=== PATIENT | male | born 1970 | race Caucasian/White ===

== ENCOUNTER 2017-02-06 00:47 | Emergency (ER) | payer SELFPAY ==
[~2017-02-06] VITALS: Ht 160 cm; Wt 68.0 kg
[2017-02-06 00:55] VITALS: Ht 160 cm; Wt 68.0 kg
[2017-02-06] MEDS ORDERED: IBUPROFEN 600 MG TAB PO ONE (01:30)
--- NOTE | 2017-02-06 02:21 | ERD ---
ER Documentation Chief Complaint Date/Time DATE: 02/06/17 TIME: 02:19 Chief Complaint left foot injury HPI 46-YEAR-OLD MALE PRESENTS HERE IN EMERGENCY DEPARTMENT FOR COMPLAINTS OF LEFT FOOT PAIN AFTER HITTING IT IN THE DESK YESTERDAY. PATIENT DESCRIBED THE PAIN THROBBING PAIN WAS 6/10 SCALE, IS WORSE UPON TOUCHING THE AREA. PATIENT DID NOT TAKE ANY MEDICATIONS FOR SYMPTOMS. PATIENT DENIES ANY NUMBNESS OR TINGLING. PATIENT DENIES ANY DEFORMITY. ROS All systems reviewed and are negative except as per history of present illness. Medications Home Meds Reported Medications [none] Unknown Strength No Conflict Check 02/06/17 Allergies Allergies: Coded Allergies: No Known Allergy (Unverified , 02/06/17) PMhx/Soc Medical and Surgical Hx: pt denies Medical Hx, pt denies Surgical Hx Hx Alcohol Use: No Hx Substance Use: No Hx Tobacco Use: No Smoking Status: Never smoker FmHx Family History: No coronary disease, No diabetes, No other Physical Exam Vitals Vital Signs Date Time Temp Pulse Resp B/P Pulse Ox O2 Delivery O2 Flow Rate FiO2 02/06/17 00:55 97.8 98 20 134/85 97 Physical Exam GENERAL: The patient is well developed and appropriate for usual state of health, in no apparent distress. CHEST: Clear to auscultation bilaterally. There are no rales, wheezes or rhonchi. HEART: Regular rate and rhythm. No murmurs, clicks, rubs or gallops. No S3 or S4. ABDOMEN: Soft, nontender and nondistended. Good bowel sounds. No rebound or guarding. No gross peritonitis. No gross organomegaly or masses. No Morgan sign or McBurney point tenderness. BACK: No midline or flank tenderness. EXTREMITIES: Tenderness on palpation on the dorsal aspect of the left foot, more on the third fourth and fifth phalanx. Equal pulses bilaterally. Full range of motion of other joints of the body. Grossly neurovascularly intact. NEURO: Alert and oriented. Cranial nerves 2-12 intact. Motor strength in all 4 extremities with 5/5 strength. Sensation grossly intact. Normal speech and gait. SKIN: There is no apparent rash or petechia. The skin is warm and dry. HEMATOLOGIC AND LYMPHATIC: There is no evidence of excessive bruising or lymphedema. No gross cervical, axillary, or inguinal lymphadenopathy. Results 24 hrs Current Medications Medications (Trade) Dose Ordered Sig/Tuyet Route PRN Reason Start Time Stop Time Status Last Admin Dose Admin Ibuprofen (Motrin) 600 mg ONCE ONCE PO 02/06/17 01:30 02/06/17 01:31 DC 02/06/17 02:01 Patient was given medication for pain here in emergency department, after treatment, patient verbalized feeling much better. Patient's pain is improved. PROCEDURE: XR Left Foot. CLINICAL INDICATION: Trauma. Pain. TECHNIQUE: AP, lateral and oblique views of the left foot was obtained. The images were reviewed on a PACS workstation. COMPARISON: None. FINDINGS: There are no fractures. Joint relationships are maintained. Bone mineralization is within normal limits. Soft tissues are unremarkable. IMPRESSION: No acute abnormality. RPTAT: HMVK .Wes Morocho MD, Date Time Electronically viewed and signed by .Wes Morocho MD, on 02/06/2017 02:40 .K/ CC: LEW NOBLE NP After receiving patients xray report, a orthopedic shoe was applied on the patients left foot. After application of the splint, patient has intact sensation and circulation on distal area of the affected joint. Patient does not complain of numbness or tingling after application of the splint. Patient tolerated procedure well. Procedures/MDM Medical Decision Making: Patient's pain is most likely consistent with a contusion or a sprain. There is no suspicion for neurovascular compromise. Patient has intact sensation and circulation of the affected extremity. There is low suspicion for septic arthritis. Patient does not have any fever. Radiology exams of the affected area does not show any fracture or dislocation. Disposition: Home. Patient is given prescription for ibuprofen for pain, tramadol for severe pain. Patient was advised to elevate the affected area and apply ice on affected area. Patient was advised that if symptoms are worse, numbness, tingling, high fever, unable to move joint, worsening symptoms, to return to emergency department immediately. Otherwise, patient is advised to follow up with the primary care doctor in 5-7 days for reevaluation of symptoms. Departure Diagnosis: Primary Impression: Foot contusion Encounter type: initial encounter Laterality: left Qualified Code: S90.32XA - Contusion of left foot, initial encounter Condition: Stable Patient Instructions: Contusion, Foot Additional Instructions: Patient is given prescription for ibuprofen for pain, tramadol for severe pain. Patient was advised to elevate the affected area and apply ice on affected area. Patient was advised that if symptoms are worse, numbness, tingling, high fever, unable to move joint, worsening symptoms, to return to emergency department immediately. Otherwise, patient is advised to follow up with the primary care doctor in 5-7 days for reevaluation of symptoms. LEW NOBLE NP Feb 06, 2017 02:21
--- NOTE | 2017-02-06 02:40 | RADRPT ---
PROCEDURE: XR Left Foot. CLINICAL INDICATION: Trauma. Pain. TECHNIQUE: AP, lateral and oblique views of the left foot was obtained. The images were reviewed on a PACS workstation. COMPARISON: None. FINDINGS: There are no fractures. Joint relationships are maintained. Bone mineralization is within normal l imits. Soft tissues are unremarkable. IMPRESSION: No acute abnormality. RPTAT: HMVK .Wes Morocho MD, MD Date Time Electronically viewed and signed by .Wes Morocho MD, on 02/06/2017 02:40 .K/
[2017-02-06] MEDS ORDERED: IBUP-1542 PO (03:00)
[2017-02-06] MEDS ORDERED: HYDR-906 PO (03:00)
== END 2017-02-06 04:01 | disposition home or self-care (01) ==
LOC: FTE 00:47
DX: S90.32XA Contusion of left foot, initial encounter (principal); W22.03XA Walked into furniture, initial encounter; Y92.9 Unspecified place or not applicable

== ENCOUNTER 2017-02-16 06:07 | Emergency (ER) | payer MEDICAID ==
[~2017-02-16] VITALS: Ht 170.2 cm; Wt 66.5 kg
[~2017-02-16 06:07] MED LIST: HYDR-906 PO; IBUP-1542 PO
[2017-02-16 06:15] VITALS: Ht 170.2 cm; Wt 66.5 kg
--- NOTE | 2017-02-16 08:07 | ERD ---
ER Documentation Chief Complaint Date/Time DATE: 02/16/17 TIME: 07:51 Chief Complaint left foot pain hit L foot on the edge of a table HPI 46-year-old male complaining of continued left foot pain. Patient was seen here 10 days ago for left foot contusion. X-ray of the time was negative. Patient stated that he has continued pain on the left foot, he now has swelling in his bilateral feet. Patient also states her right side back pain since that time he injured his left foot. Patient took claim to have a fever last 2 days with temperature of 104-105, but he did not check with a thermometer. Patient stated that he is homeless. Denies any past medical history. Denies tobacco, alcohol, or current substance abuse. Patient had a remote history of substance abuse, but has been clean for many years. ROS All systems reviewed and are negative except as per history of present illness. Medications Home Meds Active Scripts Hydrocodone/Acetaminophen ([place] 5-325 Tablet) 1 Each Tablet, 1 TAB PO Q6H Y for SEVERE PAIN LEVEL 7-10, #20 TAB Prov:LEW NOBLE NP 02/06/17 Ibuprofen* (Motrin*) 600 Mg Tab, 600 MG PO Q6H Y for PAIN AND OR ELEVATED TEMP, #30 TAB Prov:LEW NOBLE NP 02/06/17 Reported Medications [none] Unknown Strength No Conflict Check 02/06/17 Allergies Allergies: Coded Allergies: No Known Allergy (Unverified , 02/06/17) PMhx/Soc History of Surgery: No Anesthesia Reaction: No Hx Neurological Disorder: No Hx Respiratory Disorders: No Hx Cardiac Disorders: No Hx Psychiatric Problems: No Hx Miscellaneous Medical Probl: No Hx Alcohol Use: No Hx Substance Use: No Hx Tobacco Use: No Smoking Status: Never smoker Physical Exam Vitals Vital Signs Date Time Temp Pulse Resp B/P Pulse Ox O2 Delivery O2 Flow Rate FiO2 02/16/17 06:15 97.8 101 20 157/88 99 Physical Exam General: Well-developed, well-nourished, conscious and coherent, in no distress Skin: Warm and dry without rash, good texture and turgor Head: Normocephalic without evidence of trauma Eyes: Sclera and conjunctivae normal; pupils equal, round, and reactive to light; extraocular movements are intact Neck: Supple without meningismus or adenopathy. Carotids are equal. Trachea midline. No bruits or JVD Chest: Normal AP diameter. Good expansion without retractions. Nontender. Lungs are clear to auscultate bilaterally with good tidal volume Heart: Regular rate and rhythm. No murmur, rub, or gallops heard Back: Without spinal or CVA tenderness. Muscle spasm noted. Extremities: Full range of motion. Good strength bilaterally. No clubbing, cyanosis, or edema. Peripheral pulses are intact. Sensation intact Neuro: Alert and oriented 4, GCS 15. Cranial nerves grossly intact. Motor and sensory exams nonfocal. Moves all extremities. Speech clear. Gait normal Procedures/MDM Well-appearing 46-year-old male present ED with continue left foot pain. Exam is unremarkable. No erythema, edema, deformity, or tenderness is noted. His gait is normal. His initial x-ray was negative for fractures or dislocations. I doubt that he has occult fracture or infection. His back pain is likely due to muscle spasm. I doubt spinal fracture, subluxation, spinal epidural abscess , or cauda equina syndrome. Patient was given tramadol on his previous visit. He said he had finished all, but he does not want any narcotic pain medications. At this time, I do not think the patient has any condition that requires emergent evaluation. Advised patient that he should be follow-up by her primary care provider for his continued concerns. Patient appears to be slightly agitated. Patient appears well, stable for discharge and outpatient management. Medical decision making shared with patient and family. Education provided to patient and family. Patient and family expressed understanding of the plan. Medications on discharge: None. Follow-up: Primary care provider in 2-3 days or return to ED if worse. Departure Diagnosis: Primary Impression: Foot pain Additional Impression: Back spasm Condition: Stable Patient Instructions: Back Spasm, No Trauma Referrals: [facility] YOU HAVE RECEIVED A MEDICAL SCREENING EXAM AND THE RESULTS INDICATE THAT YOU DO NOT HAVE A CONDITION THAT REQUIRES URGENT TREATMENT IN THE EMERGENCY DEPARTMENT. FURTHER EVALUATION AND TREATMENT OF YOUR CONDITION CAN WAIT UNTIL YOU ARE SEEN IN YOUR DOCTORS OFFICE WITHIN THE NEXT 1-2 DAYS. IT IS YOUR RESPONSIBILITY TO MAKE AN APPOINTMENT FOR FOLOW-UP CARE. IF YOU HAVE A PRIMARY DOCTOR --you should call your primary doctor and schedule an appointment IF YOU DO NOT HAVE A PRIMARY DOCTOR YOU CAN CALL OUR PHYSICIAN REFERRAL HOTLINE AT IF YOU CAN NOT AFFORD TO SEE A PHYSICIAN YOU CAN CHOSE FROM THE FOLLOWING [facility] [id number] [facility] [address] [facility] [facility] [address] [facility] [address] [facility] [address] [facility] [facility]. [address] Additional Instructions: Call your primary care doctor TOMORROW for an appointment during the next 2-3 days.See the doctor sooner or return here if your condition worsens before your appointment time. BEN GILL NP Feb 16, 2017 08:06
== END 2017-02-16 07:02 | disposition home or self-care (01) ==
LOC: FTE 06:07
DX: M79.672 Pain in left foot (principal); M62.830 Muscle spasm of back; R40.2412 Glasgow coma scale score 13-15, at arrival to emergency department
CPT/HCPCS: 99283

== ENCOUNTER 2018-01-24 11:06 | Emergency (ER) | END 2018-01-24 11:19 | disposition home or self-care (01) ==